=== PATIENT | female | born 1990 | race Caucasian/White ===

== ENCOUNTER 2024-04-19 23:15 | Emergency (ER) | payer OTHER ==
[~2024-04-19] VITALS: Ht 152.4 cm; Wt 76.7 kg
[2024-04-19 23:16] VITALS: PULSE 92; RESP 18; TEMP 99.4
[2024-04-20 00:52] VITALS: BP 122/74; PULSE 52; RESP 18; TEMP 98.3; O2SAT 98
== END 2024-04-20 01:05 | disposition home or self-care (01) ==
LOC: FSED 23:20
DX: S00.03XA Contusion of scalp, initial encounter (principal); R51.9 Headache, unspecified; W22.09XA Striking against other stationary object, initial encounter; Y92.89 Other specified places as the place of occurrence of the external cause; J45.909 Unspecified asthma, uncomplicated
CPT/HCPCS: 70450; 99283